=== PATIENT | male | born 1950 | race Caucasian/White ===

== ENCOUNTER 2024-03-18 20:58 | Outpatient (CLI) | payer MEDICARE, SELFPAY | END 2024-03-18 20:59 | disposition home or self-care (01) | LOC: AMB 04-08 22:41 | PROVIDERS: PCP Family Medicine; Visit Provider Student in an Organized Health Care Education/Training Program | DX: R42 Dizziness and giddiness (principal) | CPT/HCPCS: A0425; A0427 ==